=== PATIENT | female | born 1950 | race Caucasian/White ===

== ENCOUNTER → 2016-10-16 | Outpatient (CLI) | payer BC ==
[~2016-10-16] MED LIST: CYCL5TAB PO; DAPT500V6 IV; ERGO500017 PO; FERR1TAB2 PO; GABA-826 PO; GABA100C PO; LEVO25TA2 PO; LISI-170 PO; METF10002 PO; METR500T PO; OXYC5TAB3 PO; POLY17PO5 PO; SENN1TAB7 PO
[2016-10-20 16:07] LABS: F082-IgE LATEX <0.10 kU/L (Class 0)
== END | disposition home or self-care (01) ==
LOC: RAD 13:41
PROVIDERS: ATTEND Family Medicine
DX: J45.991 Cough variant asthma (principal)
CPT/HCPCS: 36415; 71020; 82785; 85048; 86003; 86005

== ENCOUNTER → 2017-05-18 | Outpatient (CLI) | payer BC, MEDICARE | END | disposition home or self-care (01) | LOC: CFH 09:31 | PROVIDERS: ATTEND Nurse Practitioner Family | DX: J32.4 Chronic pansinusitis (principal) | CPT/HCPCS: 70486 ==

== ENCOUNTER → 2017-07-24 | Outpatient (CLI) | payer MEDICARE, BC | LOC: CFH 08:17 | PROVIDERS: ATTEND Otolaryngology Facial Plastic Surgery | DX: J32.4 Chronic pansinusitis (principal) | CPT/HCPCS: 70486 ==

== ENCOUNTER → 2020-12-24 | Outpatient (CLI) | payer MEDICARE, BC ==
[~2020-12-24] MED LIST changes: +ALBU8.5H8 IH; +ATOR20TA37 PO; +AZEL23SP NAS; +BECL8.7A6 INH; +DIPH25CA61 PO; +GABA300C10 PO; +METF500T17 PO; -OXYC5TAB3 PO; +OXYC5TAB98 PO; +RAMI10CA59 PO; +SENN-177 PO; -SENN1TAB7 PO; +SYSTANE I PO
== END | disposition home or self-care (01) ==
LOC: CFH 09:08
PROVIDERS: ATTEND Family Medicine
DX: J32.0 Chronic maxillary sinusitis (principal); J34.2 Deviated nasal septum
CPT/HCPCS: 70486